=== PATIENT | male | born 1980 | race Caucasian/White ===

== ENCOUNTER 2016-06-03 15:46 | Inpatient (IN) | payer BC, MEDICAID ==
[~2016-06-03] VITALS: Ht 185.4 cm; Wt 86.2 kg
[2016-06-03 18:17] LABS: Basophils # (auto) 0 uL; Basophils % (auto) 0.1 % (0.0-2.0); Eosinophils # (auto) 0 uL; Eosinophils % (auto) 0.1 % (0.0-7.0); Hematocrit 44.2 % (41.0-53.0); Lymphocytes # (auto) 0.8 uL; Lymphocytes % (auto) 10.8 % (10.0-50.0); Mean Corpuscular Hemoglobin 28.6 pg (28.0-32.0); Mean Corpuscular Hgb Conc. 34.1 g/dL (32.0-36.0); Mean Platelet Volume 8.9 fL (7.4-10.4); Monocytes # (auto) 1.2 uL; Neutrophils # (auto) 5.1 uL; Platelet Count (auto) 273 10^3/uL (140-450); Red Cell Distribution Width 15.3 % (11.6-16.0); White Blood Cell 7.1 10^3/uL (4.4-10.8)
[2016-06-03 18:35] LABS: Albumin 3.9 g/dL (3.4-5.0); BUN/Creatinine Ratio 31.9; Calcium 8.9 mg/dL (8.5-10.1); Total Protein 7.5 g/dL (6.4-8.2)
[2016-06-03] MEDS ORDERED: SODIUM CHLORIDE 0.9% 1,000 ML IVB ONE (20:16)
[2016-06-03 20:38] LABS: INR 0.97 (0.9-1.15); Partial Thromboplastin Time 24.1 sec (22.64-33.71)
[2016-06-03] MEDS ORDERED: TETANUS-DIPTH-ACEL PERTUSSIS 0.5ML SYRG IM ONE (21:00)
[2016-06-03 21:01] LABS: Urine Bilirubin Negative (Negative); Urine Blood Negative /uL (Negative); Urine Glucose Normal (Normal); Urine Nitrite Negative (Negative); Urine RBC <1 /hpf (0 - 3); Urine Squamous Epithelial Cell FEW /hpf (<5); Urine Urobilinogen Normal (Negative); Urine pH 6.5 (5.0-8.0)
[2016-06-03 21:02] LABS: Urine Color Yellow (Yellow); Urine Ketone 4+ (Negative)
[2016-06-03] MEDS ORDERED: cefTRIAXone 1GM/50ML D5W 50 ML IV ONE (22:00)
[2016-06-03] MEDS: SODIUM CHLORIDE 0.9% 1,000 ML IV SCH (23:49)
[2016-06-04] VITALS (8 sets, daily range): BP systolic 125–154; BP diastolic 47–82
[2016-06-04] MEDS ORDERED: TEMAZEPAM 15 MG CAP PO PRN
[2016-06-04] MEDS ORDERED: ONDANSETRON HCL 4 MG/2 ML VIAL IV PRN
[2016-06-04] MEDS ORDERED: SODIUM CHLORIDE 0.9% 500 ML IV ONE
[2016-06-04] MEDS ORDERED: ACETAMINOPHEN 325 MG TAB PO PRN
[2016-06-04] MEDS: HYDROcodone-ACET 5/325MG TAB PO PRN ×3 (01:32→18:25)
[2016-06-04 06:18] LABS: Basophils # (auto) 0 uL; Basophils % (auto) 0.1 % (0.0-2.0); Eosinophils # (auto) 0 uL; Eosinophils % (auto) 0.4 % (0.0-7.0); Hematocrit 36.3 % (41.0-53.0); Hemoglobin 12.3 g/dL (13.5-17.5); Lymphocytes # (auto) 1.3 uL; Lymphocytes % (auto) 22.9 % (10.0-50.0); Mean Corpuscular Hemoglobin 28.5 pg (28.0-32.0); Mean Corpuscular Hgb Conc. 33.8 g/dL (32.0-36.0); Mean Corpuscular Volume 84.2 fL (80.0-100.0); Mean Platelet Volume 8.9 fL (7.4-10.4); Monocytes % (auto) 17.6 % (0.0-12.0); Neutrophils # (auto) 3.3 uL; Platelet Count (auto) 213 10^3/uL (140-450); Red Cell Distribution Width 14.8 % (11.6-16.0); White Blood Cell 5.6 10^3/uL (4.4-10.8)
[2016-06-04] MEDS: FAMOTIDINE 20 MG TAB PO SCH (09:09)
[2016-06-04] MEDS ORDERED: VANCOMYCIN PER PHARMACY 0 MG IV SCH (16:15)
[2016-06-04] MEDS: SODIUM CHLORIDE 0.9% 1,000 ML IV SCH (18:20)
[2016-06-04] MEDS: VANCOMYCIN 1GM/250ML D5W 250 ML IV SCH (18:21)
[2016-06-05] MEDS: PIPERACILLIN-TAZOB 3.375GM 100 ML IV SCH ×4 (02:33→21:38)
[2016-06-05] MEDS: FAMOTIDINE 20 MG TAB PO SCH ×3 (02:33→21:39)
[2016-06-05] MEDS: SODIUM CHLORIDE 0.9% 1,000 ML IV SCH ×2 (04:07→18:43)
[2016-06-05 04:36] VITALS: BP 131/64
[2016-06-05] MEDS: VANCOMYCIN 1GM/250ML D5W 250 ML IV SCH ×2 (06:00→18:00)
[2016-06-05 08:00] VITALS: BP 128/68
[2016-06-05 09:00] VITALS: BP 128/68
[2016-06-05] MEDS: HYDROcodone-ACET 5/325MG TAB PO PRN ×3 (10:05→21:39)
[2016-06-05 12:38] VITALS: BP 125/67
[2016-06-05 16:30] VITALS: BP 136/70
[2016-06-05 22:07] VITALS: BP 144/77
[2016-06-06] MEDS: PIPERACILLIN-TAZOB 3.375GM 100 ML IV SCH (05:45)
[2016-06-06 05:47] LABS: Basophils # (auto) 0 uL; Basophils % (auto) 0.3 % (0.0-2.0); Eosinophils # (auto) 0.2 uL; Eosinophils % (auto) 4.6 % (0.0-7.0); Hematocrit 37.4 % (41.0-53.0); Hemoglobin 12.4 g/dL (13.5-17.5); Lymphocytes # (auto) 1.5 uL; Lymphocytes % (auto) 29.7 % (10.0-50.0); Mean Corpuscular Hemoglobin 28.4 pg (28.0-32.0); Mean Corpuscular Hgb Conc. 33.1 g/dL (32.0-36.0); Mean Corpuscular Volume 85.6 fL (80.0-100.0); Mean Platelet Volume 8.7 fL (7.4-10.4); Monocytes # (auto) 0.8 uL; Monocytes % (auto) 15.1 % (0.0-12.0); Neutrophils # (auto) 2.6 uL; Neutrophils % (auto) 50.3 % (37.0-80.0); Platelet Count (auto) 210 10^3/uL (140-450); Red Cell Distribution Width 14.4 % (11.6-16.0); White Blood Cell 5.1 10^3/uL (4.4-10.8)
[2016-06-06 05:55] VITALS: BP 120/69
[2016-06-06] MEDS: VANCOMYCIN 1GM/250ML D5W 250 ML IV SCH (06:02)
[2016-06-06 06:19] LABS: Albumin 2.9 g/dL (3.4-5.0); BUN/Creatinine Ratio 22.2; Bilirubin, Total 0.3 mg/dL (0.2-1.0); Calcium 8.4 mg/dL (8.5-10.1); Magnesium 2.3 mg/dL (1.6-2.6); Potassium 4.1 mmol/L (3.5-5.1)
[2016-06-06 08:00] VITALS: BP 134/79
[2016-06-06 09:00] VITALS: BP 134/79
[2016-06-06] MEDS: FAMOTIDINE 20 MG TAB PO SCH (09:36)
[2016-06-06] MEDS: SODIUM CHLORIDE 0.9% 1,000 ML IV SCH (09:39)
[2016-06-06] MEDS ORDERED: SULFAMETHOX W/TRIMETH(800/160MG) DS TAB PO ONE (12:15)
[2016-06-06 13:00] VITALS: BP_SYST 126; BP_SYST 132; BP_DIAS 68; BP_DIAS 72
[2016-06-06] MEDS ORDERED: VANCOMYCIN 1GM/250ML D5W 250 ML IV SCH (14:00)
[2016-06-06] MEDS ORDERED: ACE325T PO (14:10)
[2016-06-06] MEDS ORDERED: SULF-92 PO (14:10)
[2016-06-06 15:58] VITALS: BP 132/72
[2016-06-06 17:00] VITALS: BP 140/84
[2016-06-06] MEDS ORDERED: SULFAMETHOX W/TRIMETH(800/160MG) DS TAB PO SCH (22:00)
== END 2016-06-06 18:00 | disposition home or self-care (01) | DRG 384 ==
LOC: ER 15:46 → EDBD 15:46 → EDUNIT# 15:46 → OVERFLOW 15:47 → WEST WING 06-04 01:01
PROVIDERS: ADMIT Nurse Practitioner; ATTEND Internal Medicine
DX: S90.414A Abrasion, right lesser toe(s), initial encounter (principal); I96 Gangrene, not elsewhere classified; L03.115 Cellulitis of right lower limb; E83.41 Hypermagnesemia; L03.116 Cellulitis of left lower limb; S90.415A Abrasion, left lesser toe(s), initial encounter; E86.0 Dehydration; E16.2 Hypoglycemia, unspecified; D64.9 Anemia, unspecified; F15.90 Other stimulant use, unspecified, uncomplicated; F17.210 Nicotine dependence, cigarettes, uncomplicated; Z82.49 Family history of ischemic heart disease and other diseases of the circulatory system; X58.XXXA Exposure to other specified factors, initial encounter; Y93.89 Activity, other specified; Y92.89 Other specified places as the place of occurrence of the external cause; Y99.8 Other external cause status
CPT/HCPCS: 36415; 71010; 73630; 80053; 80202; 80320; 81001; 82962; 83735; 85025; 85610; 85730; 90471; 90715; 93005; 94761; 96361; 96365; G0434; J0696; J2543

== ENCOUNTER 2016-10-11 07:25 | Emergency (ER) | payer MEDICAID ==
[~2016-10-11] VITALS: Ht 180.3 cm; Wt 79.4 kg
[~2016-10-11 07:25] MED LIST: ACE325T PO; SULF-92 PO
[2016-10-11 08:47] LABS: Basophils # (auto) 0 uL; Basophils % (auto) 0.3 % (0.0-2.0); CONDITION Y; Eosinophils # (auto) 0 uL; Eosinophils % (auto) 0.2 % (0.0-7.0); Hematocrit 38.5 % (41.0-53.0); Hemoglobin 13.3 g/dL (13.5-17.5); Lymphocytes # (auto) 0.7 uL; Lymphocytes % (auto) 4.8 % (10.0-50.0); Mean Corpuscular Hgb Conc. 34.5 g/dL (32.0-36.0); Mean Corpuscular Volume 84.2 fL (80.0-100.0); Mean Platelet Volume 8.8 fL (7.4-10.4); Monocytes # (auto) 1.2 uL; Monocytes % (auto) 8.7 % (0.0-12.0); Neutrophils # (auto) 11.7 uL; Platelet Count (auto) 199 10^3/uL (140-450); Red Cell Distribution Width 14.4 % (11.6-16.0); White Blood Cell 13.6 10^3/uL (4.4-10.8)
[2016-10-11 09:20] LABS: Albumin 3.6 g/dL (3.4-5.0); BUN/Creatinine Ratio 20.8; Calcium 8.1 mg/dL (8.5-10.1); Potassium 3.1 mmol/L (3.5-5.1)
[2016-10-11 09:23] LABS: Bilirubin, Total 1.4 mg/dL (0.2-1.0); Total Protein 6.8 g/dL (6.4-8.2)
[2016-10-11 12:00] VITALS: BP 124/64
== END 2016-10-11 12:13 | disposition home or self-care (01) ==
LOC: EDBD 07:25 → ER 07:27
DX: L03.317 Cellulitis of buttock (principal); F15.10 Other stimulant abuse, uncomplicated; F41.9 Anxiety disorder, unspecified; F17.210 Nicotine dependence, cigarettes, uncomplicated; Z79.899 Other long term (current) drug therapy
CPT/HCPCS: 36415; 80053; 85025